=== PATIENT | male | born 1995 | race Caucasian/White ===

== ENCOUNTER 2017-05-16 10:59 | Emergency (ER) | payer BC ==
[~2017-05-16] VITALS: Ht 172.7 cm; Wt 59.0 kg
--- OUTSIDE RECORDS SUMMARY | 2017-05-16 11:10 | External Medical Summary Rpt | CCD ---
Author Author , KISHOR IVERSON Address Unknown Phone [email or web address] Immunization Name Date Rout CVX Reac Dose Comm Prov Is Faci e tion ent ider Refu lity Give sed n Tdap 08- 115 999 Hist H109 No H109 , 5-20 oric Adso 06 al rbed Info rmat ion - Sour ce Unsp ecif ied
--- OUTSIDE RECORDS SUMMARY | 2017-05-16 11:10 | External Medical Summary Rpt | CCD ---
Author Author KISHOR Address Unknown Phone [email or web address] Purpose Continuity of Care Document - through 2016
--- OUTSIDE RECORDS SUMMARY | 2017-05-16 11:10 | External Medical Summary Rpt | CCD ---
Author Author , KISHOR IVERSON Address Unknown Phone [email or web address] Immunization Name Date Rout CVX Reac Dose Comm Prov Is Faci e tion ent ider Refu lity Give sed n Tdap 08- 115 999 Hist H109 No H109 , 5-20 oric Adso 06 al rbed Info rmat ion - Sour ce Unsp ecif ied
--- OUTSIDE RECORDS SUMMARY | 2017-05-16 11:10 | External Medical Summary Rpt | CCD ---
Author Author [employer] Organization [employer] Address Unknown Phone Unavailable Purpose Continuity of Care Document - through 2016
--- OUTSIDE RECORDS SUMMARY | 2017-05-16 11:10 | External Medical Summary Rpt | CCD ---
Author Author KISHOR Address Unknown Phone [email or web address] Purpose Continuity of Care Document - through 2016
--- NOTE | 2017-05-16 12:43 | Urgent Treatment Center Report ---
History of Present Issue Date/Time Seen by Provider 05/16/17 1242 Visit Reason Pt arrived:Walked Presenting Problem:PT C/O LOWER BACK PAIN AND LEFT TESTICULAR PAIN THAT STARTED SUNDAY Location if Accident: Onset of symptoms date/time:/ or onset unknown for:MEDICAL HX UNKNOWN Have you (or family members/close friends) recently traveled outside the [place]? N If Yes, where/when: Have you had exposure to infectious disease within the past month? TB? Other? Specify: c/o left testicular pain and lower back pain both starting yesterday. No known injury. Thinks UTI related. left testicular pain improving since yesterday. Only left posterior side, started sat, 4 days ago. googled and thinks "sperm gland infection". Denies burning with urination, azo today has helped. urine now bright orange. Denies change to urine color prior to azo. No fever. Sexually active. Female partner only. Denies hx of STIs and doesn't feel this is due to that or related. Declining STI testing today in office. Really only wanting antibiotic. Source patient Exam Limitations no limitations ALLERGIES Coded Allergies: No Known Allergies (05/16/17) History Medical History General CAD? No Angina: No VA: No Hypertension? No Hyperlipidemia? No CHF? No DVT? No PE? No COPD? No Asthma? No Anemia? No GERD? No Gastric ulcers? No GI Bleed? No Hernia? No Thyroid Problems? No Hypothyroidism? No CVA? No Seizures? No Diabetes? No Renal Insuffiency? No UTI? No Stones? No BPH? No GB Disease: No Nephritic Syndrome? No Asplenia? No Hepatitis? No Sickle Cell Disease? No Arthritis? No Migraines? No Cataracts? No Glaucoma? No MRSA? No HIV? No TB? No Anxiety? No Depression? No Cancer? No More? No Immunization HX DT/Tetanus 1-4 Years Ago Surgical Hx Previous Surgery?N Social History Smoking Hx Smoker: Never Smoker Tobacco: No Alcohol Alcohol: No Review of Systems All Other Systems Reviewed and Negative Constitutional denies fever, denies malaise Gastrointestinal denies abdominal pain, denies nausea, denies vomiting Genitourinary hesitancy. denies: discharge, frequency, hematuria, dyspareunia, penis pain. Musculoskeletal see HPI Skin denies lesions, denies lumps, denies rash Psychiatric/Neurological denies headache Physical Exam Vital Signs Vital Signs Date Time Temp Pulse Resp B/P Pulse O2 O2 Flow FiO2 Ox Delivery Rate 05/16 1350 99.0 120 20 125/952 99 05/16 1227 99.0 120 20 125/952 99 General Appearance no apparent distress, thin Respiratory Status No: respiratory distress. Cardiovascular no peripheral edema Gastrointestinal normal bowel sounds, non tender, soft, no organomegaly, no pulsatile mass, no guarding, no rebound, no suprapubic tenderness, no bladder distention Back no CVA tenderness Male Genitalia normal genitalia (x/ minimal left epididymis ttp) Nurse present during exam? Yes (hannah) Neurologic alert, oriented x 3 Skin intact, normal color, warm/dry Medical Decision Making LABS/Meds/Orders Pt receiving controlled substance in ED? No Results/Orders Laboratory Tests 05/16/17 1238: Urine Color RED, Urine Appearance TURBID, Urine pH 6.5, Ur Specific [place] 1.020, Urine Protein 3+ H, Urine Ketones 3+ H, Urine Blood NEGATIVE, Urine Nitrate POSITIVE H, Urine Bilirubin NEGATIVE, Urine Urobilinogen >=8.0 H, Ur Leukocyte Esterase 2+ H, Urine RBC NONE, Urine WBC 10-20, Ur Squamous Epith Cells 3-5, Urine Bacteria 4+, Urine Mucus 4+, Urine Glucose 1+ H 05/16/17 1231: Urine Color Cancelled, Urine Appearance Cancelled, Urine pH Cancelled, Ur Specific [place] Cancelled Orders Procedure Date/time Status URINALYSIS/COMPLETE 05/16 1239 Complete CULTURE, URINE 05/16 1238 Active Consult MD Physician Consult Consult/PCP Ol[facility] PHarmacist Time Called 1340 Reason Pt. Condition Comments Epididymitis and UTI. Suggest treatment w/ rocephin 250mg and levaquin even considering age in order to cover both. Progress [facility] Progress Notes Date 05/16/17 Time 1320 Comment Discussed STI testing. Pt declined and doesn't feel this is due to that. Educated about how it could be and the risk of not treating. No testing today but agrees to follow up with primary care, Dr. Taylor, regarding it. Departure Departure Time of Disposition 1341 Disposition DC Home or Self Care(routine) Clinical Impression Primary Impression: Epididymitis, left Secondary Impressions: UTI (urinary tract infection) Qualifiers: Urinary tract infection type: site unspecified Hematuria presence: without hematuria Qualified Code: N39.0 - Urinary tract infection, site not specified Condition STABLE Referrals Claudia CAMPA,Jose Alejandro Robbins Return immediately for new or worsening symptoms. Call Dr. Taylor's office today. Tell them you were seen in [facility] today and was told that it was very important that you follow up there in 2-3 days. Patient Instructions DI for Epididymitis, DI for Urinary Tract Infection (UTI) Additional Instructions Read attached education Possibility that your bacteria is caused by a sexually transmitted infection as we discussed. You should really consider testing to rule out sexually transmitted infections before you continue to be sexually active and to prevent further complications. * increase fluids, Water and NOT soda or tea * Start antibiotic immediately and be sure to take as ordered for the FULL length of time although you should start to see improvement over the next 48 hours. * Be SURE to follow up anytime for new or worsening symptoms, AND in 48 hours for urine culture results * Be sure to let your PCP (or whoever you follow up with) know we sent urine culture so they can request records and ensure you are on the appropriate antibiotic if you are not getting better or getting worse!!! Discharge Counseling Counseled pt/family regarding diagnosis, test results, medications/RX, home care, follow up needs Prescriptions Current Visit Scripts Levofloxacin (Levaquin 500MG) 500 MG PO DAILY #10 TAB at 0042
[2017-05-16 13:04] LABS: URINE BILIRUBIN - DIPSTICK NEGATIVE (NEG); URINE BLOOD NEGATIVE (NEG)
[2017-05-16] MEDS ORDERED: LEVAQUIN500 MG PO (13:48)
[2017-05-16 13:50] VITALS: BP 125/952
== END 2017-05-16 13:52 | disposition home or self-care (01) ==
LOC: UTC 10:59
PROVIDERS: Nurse Practitioner Family
DX: N45.1 Epididymitis (principal); N39.0 Urinary tract infection, site not specified